=== PATIENT | female | born 1975 ===

== ENCOUNTER 2016-08-31 13:32 | Emergency (ER) | payer OTHER ==
[2016-08-31 13:41] VITALS: BMI 35.4
[2016-08-31 13:43] VITALS: PULSE 65; RESP 19; TEMP 97.7; O2SAT 98
[2016-08-31 13:44] VITALS: BP 144/93
[2016-08-31] MEDS ORDERED: TraMADol/Apap 37.5/325 mg Tab PO STA (13:57)
--- NOTE | 2016-08-31 14:34 | CT ---
PROCEDURE: CT HEAD WITHOUT CONTRAST. HISTORY: hit head; headache and dizzy COMPARISON: None available. TECHNIQUE: Axial computed tomography images were obtained through the head/brain without intravenous contrast. Radiation dose: Total exam DLP = 688 mGy-cm. This CT exam was performed using one or more of the following dose reduction techniques: Automated exposure control, adjustment of the mA and/or kV according to patient size, and/or use of iterative reconstruction technique. FINDINGS: HEMORRHAGE: No intracranial hemorrhage. BRAIN: No mass effect or edema. No atrophy or chronic microvascular ischemic changes. VENTRICLES: Unremarkable. No hydrocephalus. CALVARIUM: Unremarkable. PARANASAL SINUSES: Unremarkable as visualized. No significant inflammatory changes. MASTOID AIR CELLS: Unremarkable as visualized. No inflammatory changes. OTHER FINDINGS: None. IMPRESSION: Normal CT of the Head.
--- NOTE | 2016-08-31 14:43 | ED PDOC ---
Arrival/HPI - General Chief Complaint: Trauma Time Seen by Provider: 08/31/16 13:48 Historian: Patient - History of Present Illness Narrative History of Present Illness (Text): 08/31/16 14:37 A 41 year old female, who denies any past medical history, presents to the emergency room complaining of dizziness and neck pain because of a slip and fall incident on a wet surface that occurred prior to arrival. Patient reports that she slipped and fell forward into a glass window/pane and also hit her right knee. Patient states she feels room spinning. Patient also reports she has a headache and neck pain radiates to her shoulders. Patient does not feel like passing out, denies nausea and any other complaints at this time. Time/Duration: Prior to Arrival Symptom Onset: Sudden Symptom Course: Unchanged Activities at Onset: Rest Modifying Factors (Text): none Context: Home Associated Symptoms (Text): headache Past Medical History - Provider Review Nursing Documentation Reviewed: Yes - Genitourinary/Gynecological Hx Genitourinary Disorders: Yes Other/Comment: Fibroids - Psychiatric Hx Substance Use: No - Surgical History Other/Comment: fibroid sx Family/Social History - Physician Review Nursing Documentation Reviewed: Yes Family/Social History: No Known Family HX Smoking Status: Unknown If Ever Smoked Hx Alcohol Use: No Hx Substance Use: No Allergies/Home Meds Allergies/Adverse Reactions: Allergies No Known Allergies Allergy (Verified 08/31/16 13:40) Review of Systems - Physician Review All systems were reviewed & negative as marked: Yes - Review of Systems Constitutional: Normal Eyes: absent: Vision Changes Respiratory: absent: SOB Cardiovascular: absent: Chest Pain, Syncope Gastrointestinal: absent: Nausea Musculoskeletal: Neck Pain Neurological: Headache, Dizziness. absent: Focal Weakness Physical Exam Vital Signs Reviewed: Yes Vital Signs Temp Pulse Resp BP Pulse Ox 08/31/16 13:41 97.7 F 65 19 144/93 H 98 Temperature: Afebrile Blood Pressure: Hypertensive Pulse: Regular Respiratory Rate: Normal Appearance: Positive for: Well-Appearing, Non-Toxic, Comfortable Pain Distress: None Mental Status: Positive for: Alert and Oriented X 3 - Systems Exam Head: Present: Atraumatic, Normocephalic Pupils: Present: PERRL Extroacular Muscles: Present: EOMI Conjunctiva: Present: Normal Mouth: Present: Moist Mucous Membranes Pharnyx: Present: Normal. No: ERYTHEMA, EXUDATE Neck: Present: MIDLINE TENDERNESS (tender to palpation mid-low c-spine), Paraspinal Tenderness (b/L) Respiratory/Chest: Present: Clear to Auscultation, Good Air Exchange. No: Respiratory Distress, Accessory Muscle Use Cardiovascular: Present: Regular Rate and Rhythm, Normal S1, S2. No: Murmurs Abdomen: Present: Normal Bowel Sounds. No: Tenderness, Distention, Peritoneal Signs Upper Extremity: Present: Normal Inspection. No: Cyanosis, Edema Lower Extremity: Present: Normal Inspection. No: Edema Neurological: Present: GCS=15, CN II-XII Intact, Speech Normal, Motor Func Grossly Intact Skin: Present: Warm, Dry, Normal Color. No: Rashes Psychiatric: Present: Alert, Oriented x 3, Normal Insight, Normal Concentration Medical Decision Making ED Course and Treatment: 08/31/16 14:44 Impression: 41 year old female with dizziness and neck pain. Differential Diagnosis included but are not limited to: Muscle strain vs intracranial injury Plan: -- CT cervial spine wo contrast -- Antivert, Toradol, Ultracet -- Reassess and disposition Progress Notes: Brain CT: FINDINGS: HEMORRHAGE: No intracranial hemorrhage. BRAIN: No mass effect or edema. No atrophy or chronic microvascular ischemic changes. VENTRICLES: Unremarkable. No hydrocephalus. CALVARIUM: Unremarkable. PARANASAL SINUSES: Unremarkable as visualized. No significant inflammatory changes. MASTOID AIR CELLS: Unremarkable as visualized. No inflammatory changes. OTHER FINDINGS: None. IMPRESSION: Normal CT of the Head. Cervical Spine CT: FINDINGS: VERTEBRAE: No fracture. Normal alignment. No destructive bony lesion. DISCS/SPINAL CANAL/NEURAL FORAMINA: No significant central canal or neural foraminal stenosis. Discs heights are grossly preserved. PARASPINAL SOFT TISSUES: Unremarkable. OTHER FINDINGS: None. IMPRESSION: Unremarkable CT of the cervical spine. 08/31/16 15:01 Imaging is negative; patient feels better - will d/c. - RAD Interpretation Radiology Orders: 08/31/16 13:57 Brain [HEAD W/O CONTRAST] [CT] Stat 08/31/16 13:58 CERVICAL SPINE W/O CONTRAST [CT] Stat - Medication Orders Current Medication Orders: Discontinued Medications Ketorolac Tromethamine (Toradol) 60 mg IM STAT STA Stop: 08/31/16 13:57 Last Admin: 08/31/16 14:09 Dose: 60 MG IM Administration Charges Document 08/31/16 14:09 SE (Rec: 08/31/16 14:09 [place] [facility] [id number] Injection Site MAR Injection Site Left Vastus Lateralis Charges for Administration # of IM Administrations 1 Meclizine HCl (Antivert) 12.5 mg PO STAT STA Stop: 08/31/16 13:57 Last Admin: 08/31/16 14:09 Dose: 12.5 MG Tramadol/Acetaminophen (Ultracet 37.5/325 Mg) 1 tab PO STAT STA Stop: 08/31/16 13:58 Last Admin: 08/31/16 14:09 Dose: 1 TAB - Scribe Statement The provider has reviewed the documentation as recorded by the Nathalieibblossom Culp All medical record entries made by the Scribe were at my direction and personally dictated by me. I have reviewed the chart and agree that the record accurately reflects my personal performance of the history, physical exam, medical decision making, and the department course for this patient. I have also personally directed, reviewed, and agree with the discharge instructions and disposition. Disposition/Present on Arrival - Present on Arrival Any Indicators Present on Arrival: No History of DVT/PE: No History of Uncontrolled Diabetes: No Urinary Catheter: No History of Decub. Ulcer: No History Surgical Site Infection Following: None - Disposition Have Diagnosis and Disposition been Completed?: Yes Diagnosis: Minor head injury without loss of consciousness, Cervical muscle strain Disposition: HOME/ ROUTINE Disposition Time: 15:10 Patient Plan: Discharge Condition: GOOD Discharge Instructions (ExitCare): Cervical Strain (DC), Head Injury (ED) Additional Instructions: Take the medications as prescribed. Follow up with your primary care doctor. Return to the emergency department if any new concerning symptoms. Prescriptions: Naproxen [Naprosyn] 500 mg PO BID PRN #20 tab PRN Reason: Pain traMADol [Ultram] 1 tab PO Q8H PRN #15 tab PRN Reason: Pain, Severe (8-10) Referrals: Saul Catalan MD [Staff Provider] - Follow up with primary Forms: WORK NOTE
--- NOTE | 2016-08-31 14:45 | CT ---
PROCEDURE: CT Cervical Spine without contrast HISTORY: Neck pain COMPARISON: None available. TECHNIQUE: Axial computed tomography images were obtained of the cervical spine without the use of intravenous contrast. Coronal and sagittal reformatted images were created and reviewed. Radiation dose: Total exam DLP = 635 mGy-cm. This CT exam was performed using one or more of the following dose reduction techniques: Automated exposure control, adjustment of the mA and/or kV according to patient size, and/or use of iterative reconstruction technique. FINDINGS: VERTEBRAE: No fracture. Normal alignment. No destructive bony lesion. DISCS/SPINAL CANAL/NEURAL FORAMINA: No significant central canal or neural foraminal stenosis. Discs heights are grossly preserved. PARASPINAL SOFT TISSUES: Unremarkable. OTHER FINDINGS: None. IMPRESSION: Unremarkable CT of the cervical spine.
== END 2016-08-31 15:17 | disposition home or self-care (01) ==
LOC: ED 13:32 → MERGE 13:32 → ED 15:17
DX: S09.90XA Unspecified injury of head, initial encounter (principal); S16.1XXA Strain of muscle, fascia and tendon at neck level, initial encounter; W01.10XA Fall on same level from slipping, tripping and stumbling with subsequent striking against unspecified object, initial encounter; Y92.009 Unspecified place in unspecified non-institutional (private) residence as the place of occurrence of the external cause
CPT/HCPCS: 70450; 72125; 96372; 99285; J1885